=== PATIENT | female | born 1980 | race Caucasian/White ===

== ENCOUNTER 2023-07-12 20:00 | Emergency (ER) | payer OTHER, SELFPAY ==
[2023-07-12 20:12] VITALS: BP 134/60; PULSE 80; RESP 20; TEMP 37.1; O2SAT 98; BMI 36.8
--- NOTE | 2023-07-12 20:22 | DI.CT.S_ITS ---
PROCEDURE: CT HEAD/BRAIN WO CON INDICATIONS: L sided facial numbness now resolved TECHNIQUE: Noncontrast 4.5 mm thick angled axial sections acquired from the foramen magnum to the vertex, with coronal and sagittal reformats. For radiation dose reduction, the following was used: automated exposure control, adjustment of mA and/or kV according to patient size. COMPARISON: None. FINDINGS: Image quality: Diagnostic. CSF spaces: Basal cisterns are patent. No extra-axial fluid collections. Ventricles are normal in size and shape. Brain: No midline shift. No intracranial masses or hemorrhage. Aguilar-white matter interface is normal. Skull and face: Calvarium and visualized facial bones are intact, without suspicious lesions. Sinuses: Visualized sinuses and mastoids are clear. IMPRESSION: No acute intracranial pathology. Dictated by: Delisa Floyd M.D. on 07/12/2023 at 20:56 Approved by: Delisa Floyd M.D. on 07/12/2023 at 20:57
[2023-07-12 21:09] VITALS: PULSE 78; RESP 16; O2SAT 98
[2023-07-12 21:22] VITALS: BP 138/60; PULSE 82; RESP 18; O2SAT 100
[2023-07-12 21:26] LABS: Add Manual Diff / Slide Review NO; Basophils Absolute Auto 100 /uL (0-100); Eosinophils Absolute Auto 200 /uL (0-450); Eosinophils Percent Auto 1.6 % (2-4); Hematocrit 35.9 % (36-46); Hemoglobin 12.5 g/dL (12.0-16.0); Lymphocytes Absolute Auto 3000 /uL (1100-4500); Lymphocytes Percent Auto 27.5 % (25-40); Mean Corpuscular HGB Conc 34.7 % (30-36); Mean Corpuscular Hemoglobin 30.1 PG (26-34); Mean Corpuscular Volume 86.7 fL (80-100); Monocytes Absolute Auto 1200 /uL (0-900); Monocytes Percent Auto 11.5 % (3-14); Neutrophils Absolute Auto 6300 /uL (1500-7000); Neutrophils Percent Auto 58.4 % (50-75); Red Blood Cell Count 4.14 X10^6/uL (4.0-5.2); Red Cell Distribution Width 13.9 % (11.6-14.8); White Blood Cell Count 10.8 X10^3/uL (4.5-11.0)
[2023-07-12 21:28] LABS: Alanine Aminotransferase 25 IU/L (<35); Albumin 4.6 g/dL (3.5-5.0); Albumin Globulin Ratio 1.4 (1.0-2.8); Alkaline Phosphatase 53 U/L (38-126); Aspartate Aminotransferase 26 IU/L (14-36); BUN Creatinine Ratio 18.5 (6-22); Bilirubin Total 0.6 mg/dL (0.2-1.3); Blood Urea Nitrogen 12 mg/dL (7-17); Carbon Dioxide 25 mmol/L (22-32); Chloride 102 mmol/L (98-107); Estimated Glomerular Filt Rate > 60 mL/min (>60); Globulin 3.3 g/dL (1.7-4.1); Glucose 115 mg/dL (70-100); HEMOLYSIS 42 (0-50); Lipase 87 U/L (23-300); Sodium 139 mmol/L (137-145); Total Protein 7.9 g/dL (6.3-8.2)
[2023-07-12 21:30] VITALS: BP 145/67; PULSE 80; RESP 13; O2SAT 98
--- NOTE | 2023-07-12 21:50 | ED.NEUROSD ---
HPI - Neuro Symptoms/Deficit General Chief Complaint: Neuro Symptoms/Deficit Stated Complaint: lt side of face went numb Time Seen by Provider: 07/12/23 20:21 Source: patient Mode of arrival: Family Vehicle History of Present Illness HPI Narrative: Patient is a 43-year-old female who comes in the emergency department for evaluation. She states that this evening she was driving home after taking a family member to medical appointment. She states she thought that she had a sudden onset of tingling to the right side of her face. She thought that maybe she had some hard time swallowing some coffee that she was drinking. Did not specifically notice any speech issues but she was alone at the time. She reports no other associated symptoms to include headache or vision changes chest pain or palpitations shortness of breath. No balance issues. No numbness or tingling in her upper and lower extremities. She has never had anything like this in the past. She admits that maybe she was having some anxiety/panic attack because her recently had a acute stroke for which he is still recovering. At the time of my evaluation she has no symptoms. On Anticoagulants: No Review of Systems Constitutional Constitutional: Reports system reviewed and no additional complaints, except as documented Eyes Eyes: Reports system reviewed and no additional complaints, except as documented ENT Ears, Nose, Mouth, and Throat: Reports system reviewed and no additional complaints, except as documented Cardiovascular Cardiovascular: Reports system reviewed and no additional complaints, except as documented Respiratory Respiratory: Reports system reviewed and no additional complaints, except as documented Gastrointestinal Gastrointestinal: Reports system reviewed and no additional complaints, except as documented Musculoskeletal Musculoskeletal: Reports system reviewed and no additional complaints, except as documented Integumentary/Breasts Skin/Breast: Reports system reviewed and no additional complaints, except as documented Neurologic Neurologic: Reports system reviewed and no additional complaints, except as documented Hematologic/Lymphatic On Anticoagulants: No Patient History Social History Smoking Status: Never smoker Smoking Status: Never smoker Alcohol type: other Substance Use Type: does not use Exam Initial Vital Signs Initial Vital Signs: Vital Signs Temperature 98.8 F 07/12/23 20:12 Pulse Rate 80 07/12/23 20:12 Respiratory Rate 20 07/12/23 20:12 Blood Pressure 134/60 07/12/23 20:12 Pulse Oximetry 98 07/12/23 20:12 Oxygen Delivery Method Room Air 07/12/23 20:12 Const General: cooperative, comfortable and No ill appearing HENMT Head: normal to inspection and normocephalic Eyes Pupils: PERRL EOM: EOM intact bilaterally Resp Effort & Inspection: normal respiratory effort Auscultation: clear to auscultation bilaterally GI Inspection: normal to inspection Palpation: soft and No guarding Skin General: no rashes or lesions noted Neuro General: patient alert, patient awake, patient oriented x3 and moves all extremities Cranial Nerves: CN's II-XI intact bilaterally Cognition: normal cognition Speech: speech normal Motor: muscle tone normal throughout Sensory Exam: no sensory deficits noted Extrem General: normal to inspection and capillary refill normal Other: 5/5 strength upper and lower extremities Scores ABCD2 Age >= 60 years: no Initial BP. Either SBP >= 140 or DBP >= 90.: no Clinical features of the TIA: other symptoms Duration of symptoms: 10-59 minutes History of diabetes: no ABCD2 Score: 1 Course Orders Ordered: ED Orders 07/12/23 20:22 CT head/brain wo con Stat EKG-12 Lead Stat 07/12/23 21:00 Complete Blood Count AUTO DIFF Stat Comprehensive Metabolic Panel Stat Lipase Stat Vital Signs Vital signs: Vital Signs - 8 hr 07/12/23 20:12 07/12/23 21:09 07/12/23 21:22 Temperature 98.8 F Pulse Rate 80 78 Respiratory Rate 20 16 Blood Pressure 134/60 138/60 Pulse Oximetry 98 98 Oxygen Delivery Method Room Air Room Air 07/12/23 21:22 07/12/23 21:30 07/12/23 21:30 Temperature Pulse Rate 82 80 Respiratory Rate 18 13 Blood Pressure 145/67 H Pulse Oximetry 100 98 Oxygen Delivery Method Room Air Room Air MDM - Neuro Symptoms/Deficit Lab Data Attestation: I reviewed the patient's lab results. 07/12/23 21:00 07/12/23 21:00 Labs: Lab Results 07/12/23 Range/Units 21:00 WBC 10.8 (4.5-11.0) X10^3/uL RBC 4.14 (4.0-5.2) X10^6/uL Hgb 12.5 (12.0-16.0) g/dL Hct 35.9 L (36-46) % MCV 86.7 (80-100) fL MCH 30.1 (26-34) PG MCHC 34.7 (30-36) % RDW 13.9 (11.6-14.8) % Plt Count TNP Neut % (Auto) 58.4 (50-75) % Lymph % (Auto) 27.5 (25-40) % Kimball % (Auto) 11.5 (3-14) % Eos % (Auto) 1.6 L (2-4) % Baso % (Auto) 1.0 (0-2) % Neut # (Auto) 6300 (3894-5211) /uL Lymph # (Auto) 3000 (4608-9555) /uL Kimball # (Auto) 1200 H (0-900) /uL Eos # (Auto) 200 (0-450) /uL Baso # (Auto) 100 (0-100) /uL Sodium 139 (137-145) mmol/L Potassium 4.0 (3.4-5.1) mmol/L Chloride 102 (98-107) mmol/L Carbon Dioxide 25 (22-32) mmol/L BUN 12 (7-17) mg/dL Creatinine 0.65 (0.52-1.04) mg/dL Estimated GFR > 60 (>60) mL/min BUN/Creatinine Ratio 18.5 (6-22) Glucose 115 H (70-100) mg/dL Calcium 10.0 (8.4-10.2) mg/dL Total Bilirubin 0.6 (0.2-1.3) mg/dL AST 26 (14-36) IU/L ALT 25 (<35) IU/L Alkaline Phosphatase 53 (38-126) U/L Total Protein 7.9 (6.3-8.2) g/dL Albumin 4.6 (3.5-5.0) g/dL Globulin 3.3 (1.7-4.1) g/dL Albumin/Globulin Ratio 1.4 (1.0-2.8) Lipase 87 (23-300) U/L Imaging Data CT scan - head: Radiologist's Impression: PROCEDURE: CT HEAD/BRAIN WO CON INDICATIONS: L sided facial numbness now resolved TECHNIQUE: Noncontrast 4.5 mm thick angled axial sections acquired from the foramen magnum to the vertex, with coronal and sagittal reformats. For radiation dose reduction, the following was used: automated exposure control, adjustment of mA and/or kV according to patient size. COMPARISON: None. FINDINGS: Image quality: Diagnostic. CSF spaces: Basal cisterns are patent. No extra-axial fluid collections. Ventricles are normal in size and shape. Brain: No midline shift. No intracranial masses or hemorrhage. Aguilar-white matter interface is normal. Skull and face: Calvarium and visualized facial bones are intact, without suspicious lesions. Sinuses: Visualized sinuses and mastoids are clear. IMPRESSION: No acute intracranial pathology. ECG Data Interpretation: Sinus rhythm Ventricular rate 88 Normal axis Occasional PVC Normal QRS No ST T wave changes MDM Narrative Medical decision making narrative: Patient has a low risk ABCD2 score. She is now completely asymptomatic. Her EKGs unremarkable. Labs unremarkable. Head CT is unremarkable. I have low suspicion for CVA. Low suspicion for Mahoney's palsy. Potentially could have been a TIA however I am not completely convinced of this. Patient does admit that this could have been anxiety as well. I do feel that we can hold on further workup this evening out of the emergency department. Advised that she continue to take any medications as directed and contact her primary doctor for follow-up. We did discuss specific return precautions. She expressed understanding and agreement. Discharge Plan Departure Patient Disposition: Home Clinical Impression: Facial paresthesia Instructions: DI for Numbness/Tingling Activity Restrictions/Additional Instructions: Your workup and evaluation here in the emergency department is very reassuring. I recommend that you continue to take any medications as directed. Contact your primary care doctor for a follow-up. Return to the emergency department for new or worsening symptoms. Referrals: Julian Rose MD [Primary Care Provider] - Stand Alone Forms: Patient Portal/API
[2023-07-12 22:00] VITALS: BP 126/59; PULSE 80; RESP 21; O2SAT 96
== END 2023-07-12 22:20 | disposition home or self-care (01) ==
PROVIDERS: Emergency Provider Emergency Medicine; PCP Family Medicine
DX: R20.2 Paresthesia of skin (principal)
CPT/HCPCS: 36415; 70450; 80053; 83690; 85025; 93005; 93010; 99284